=== PATIENT | female | born 1965 | race Caucasian/White ===

== ENCOUNTER 2018-02-21 11:41 | Emergency (ER) | payer MEDICARE, MEDICAID ==
[~2018-02-21] VITALS: Ht 162.6 cm; Wt 90.0 kg
[2018-02-21 11:54] VITALS: BP 143/89
[2018-02-21] MEDS ORDERED: ORPH100T2 PO (12:20)
== END 2018-02-21 12:30 | disposition home or self-care (01) ==
LOC: ER 11:41
DX: R51 Headache (principal); F07.81 Postconcussional syndrome; R20.2 Paresthesia of skin; R42 Dizziness and giddiness; Z88.0 Allergy status to penicillin; Z88.8 Allergy status to other drugs, medicaments and biological substances
CPT/HCPCS: 99283

== ENCOUNTER 2018-03-31 15:09 | Emergency (ER) | payer MEDICARE, OTHER ==
[~2018-03-31] VITALS: Ht 162.6 cm; Wt 90.0 kg
[~2018-03-31 15:09] MED LIST: ORPH100T2 PO
[2018-03-31 15:33] VITALS: BP 125/84
[2018-03-31] MEDS ORDERED: HYDR-4353 PO (17:18)
[2018-03-31] MEDS ORDERED: HYDR-4383 PO ×2 (17:24→18:06)
[2018-03-31] MEDS ORDERED: ketorolac tromethamine 15mg/ml inj. IM ONE (17:25)
== END 2018-03-31 18:07 | disposition home or self-care (01) ==
LOC: ER 15:10
DX: S16.1XXA Strain of muscle, fascia and tendon at neck level, initial encounter (principal); Z88.0 Allergy status to penicillin; Z88.8 Allergy status to other drugs, medicaments and biological substances; Z79.899 Other long term (current) drug therapy; X58.XXXA Exposure to other specified factors, initial encounter; Y93.89 Activity, other specified; Y92.89 Other specified places as the place of occurrence of the external cause; Y99.8 Other external cause status
CPT/HCPCS: 96372; 99284; J1885

== ENCOUNTER 2018-11-07 18:25 | Emergency (ER) | payer MEDICARE, MEDICAID ==
[~2018-11-07] VITALS: Ht 162.6 cm; Wt 81.0 kg
[~2018-11-07 18:25] MED LIST changes: +HYDR-4383 PO
[2018-11-07 19:02] LABS: BASOPHILS % (AUTO) 0.3 % (0-1); EOSINOPHILS # (AUTO) 0.1 X10'3 (0-0.9); HEMATOCRIT 49.1 % (35.0-45.0); HEMOGLOBIN 16.6 g/dl (12.0-16.0); LYMPHOCYTES # (AUTO) 2.1 X10'3 (1.1-4.8); LYMPHOCYTES % (AUTO) 17.3 % (21-51); MEAN CORPUSCULAR HEMOGLOBIN 29.6 PG (27.0-31.0); MEAN CORPUSCULAR HGB CONC 33.8 g/dL (33.0-36.5); MEAN CORPUSCULAR VOLUME 87.5 FL (78-98); MEAN PLATELET VOLUME 7.7 FL (7.4-10.4); MONOCYTES # (AUTO) 0.6 X10'3 (0-0.9); MONOCYTES % (AUTO) 5.3 % (2-12); NEUTROPHILS # (AUTO) 9.2 X10'3 (1.8-7.7); NEUTROPHILS % (AUTO) 76.1 % (42-75); PLATELET COUNT 467 X10'3 (140-440); RED BLOOD COUNT 5.61 X10'6 (4.20-5.60); RED CELL DISTRIBUTION WIDTH 13.8 % (11.5-14.5); WHITE BLOOD COUNT 12.2 X10'3 (4.5-11.0)
[2018-11-07 19:06] LABS: CLARITY,URINE CLEAR (Clear); COLOR,URINE YELLOW (Yellow); GLUCOSE, URINE 250 mg/dl (Neg); KETONES,URINE NEGATIVE (Neg); LEUKOCYTE ESTERASE ,URINE NEGATIVE (Neg); NITRITES, URINE NEGATIVE (Neg); OCCULT BLOOD,URINE SMALL (Neg); PROTEIN,URINE >=300 mg/dl (Neg); URINE HCG NEGATIVE (NEG); UROBILINOGEN,URINE 0.2 E.U/dL (0.2-1.0)
[2018-11-07 19:07] LABS: UA COLLECTION TYPE CLN CATCH MIDSTREAM
[2018-11-07 19:14] LABS: BACTERIA,URINE NONE SEEN /HPF (Neg); MUCUS STRANDS NONE SEEN /LPF (Neg); RBC,URINE 0-2 /HPF (0-2); SQUAMOUS EPITHELIAL CELL,UR FEW /LPF (FEW); WBC,URINE NONE SEEN /HPF (0-4)
[2018-11-07 19:25] LABS: ALANINE AMINOTRANSFERASE 56 U/L (12-78); ALBUMIN 4.4 G/DL (3.4-5.0); ALBUMIN/GLOBULIN RATIO 0.9 (1.1-1.5); ALKALINE PHOSPHATASE 126 IU/L (46-116); ANION GAP 9 (8-16); ASPARTATE AMINO TRANSFERASE 24 U/L (10-37); BILIRUBIN,TOTAL 0.5 MG/DL (0.1-1.0); BLOOD UREA NITROGEN 7 MG/DL (7-18); BUN/CREATININE RATIO 9.7 (6.6-38.0); CALCIUM 10.5 MG/DL (8.5-10.1); CHLORIDE 100 MMOL/L (99-107); CREATININE 0.72 MG/DL (0.40-0.90); GLUCOSE 202 MG/DL (70-104); POTASSIUM 4.7 MMOL/L (3.5-5.1); SODIUM 137 MMOL/L (135-145); TOTAL CARBON DIOXIDE 28.2 MMOL/L (24-32); TOTAL PROTEIN 9.3 G/DL (6.4-8.2); eGFR 84 ML/MIN
--- NOTE | 2018-11-07 19:35 | NUR ---
PT DECLINED IV START STATES SHE HAS DRANK PLENTY OF FLUIDS TODAY IS ASKING FOR NAUSEA MEDICATION TO BE GIVEN PO OR RI NOTIFIED DR PORTILLO
[2018-11-07] MEDS ORDERED: ondansetron/PF 4mg/2ml inj IV ONE (19:40)
[2018-11-07] MEDS ORDERED: normal saline 1000ML IV soln IVB ONE (19:40)
--- NOTE | 2018-11-07 19:41 | NUR ---
traffic director her to take pt to ct via wheel chair
--- NOTE | 2018-11-07 19:52 | NUR ---
PT BACK FROM CT
[2018-11-07] MEDS ORDERED: ondansetron 4mg rapidly disintigrating tab PO ONE (20:05)
[2018-11-07] MEDS ORDERED: ONDA4TAB6 PO (20:55)
--- NOTE | 2018-11-07 20:56 | NUR ---
EKG BEING DONE NOW
[2018-11-07 21:10] VITALS: BP 159/93
[2018-11-07 21:13] LABS: TROPONIN I < 0.04 NG/ML (0.0-0.05)
== END 2018-11-07 21:08 | disposition home or self-care (01) ==
LOC: ER 18:26
DX: R42 Dizziness and giddiness (principal); R11.0 Nausea; E11.9 Type 2 diabetes mellitus without complications; Z88.0 Allergy status to penicillin; Z88.8 Allergy status to other drugs, medicaments and biological substances; Z79.899 Other long term (current) drug therapy
CPT/HCPCS: 36415; 70450; 80053; 81001; 81025; 82948; 84484; 85025; 85610; 93005; 99284

== ENCOUNTER 2020-02-13 10:20 | Emergency (ER) | payer MEDICARE, MEDICAID ==
[~2020-02-13] VITALS: Ht 162.6 cm; Wt 71.8 kg
[~2020-02-13 10:20] MED LIST changes: +ONDA4TAB6 PO
[2020-02-13 10:31] VITALS: BP 131/82
[2020-02-13] MEDS ORDERED: CLIN150C8 PO (10:47)
[2020-02-13] MEDS ORDERED: HYDR-3965 PO (10:47)
== END 2020-02-13 11:09 | disposition home or self-care (01) ==
LOC: ER 10:21
DX: K02.9 Dental caries, unspecified (principal); E11.9 Type 2 diabetes mellitus without complications; Z72.89 Other problems related to lifestyle; Z88.0 Allergy status to penicillin; Z88.2 Allergy status to sulfonamides; Z79.899 Other long term (current) drug therapy
CPT/HCPCS: 99283

== ENCOUNTER 2020-02-17 19:51 | Emergency (ER) | payer MEDICARE, MEDICAID ==
[~2020-02-17] VITALS: Ht 162.6 cm; Wt 73.5 kg
[~2020-02-17 19:51] MED LIST changes: +CLIN150C8 PO; +HYDR-3965 PO
[2020-02-17 19:52] VITALS: BP 154/87
[2020-02-17] MEDS ORDERED: ondansetron 4mg rapidly disintigrating tab PO ONE (21:15)
[2020-02-17] MEDS ORDERED: HYDR-4383 PO (21:15)
[2020-02-17] MEDS ORDERED: HYDROcodone/acetaminophen 5mg/325mg tablet PO ONE (21:15)
[2020-02-17] MEDS ORDERED: ONDA4TAB6 PO (21:15)
== END 2020-02-17 21:30 | disposition home or self-care (01) ==
LOC: ER 19:51
DX: K08.89 Other specified disorders of teeth and supporting structures (principal); E11.9 Type 2 diabetes mellitus without complications; Z88.0 Allergy status to penicillin; Z88.2 Allergy status to sulfonamides; Z88.8 Allergy status to other drugs, medicaments and biological substances; Z79.899 Other long term (current) drug therapy
CPT/HCPCS: 99283

== ENCOUNTER → 2020-05-29 | Day surgery (SDC) | payer MEDICARE, MEDICAID ==
[2020-05-22 11:23] LABS: CLARITY,URINE CLEAR (Clear); COLOR,URINE YELLOW (Yellow); GLUCOSE, URINE NEGATIVE (Neg); KETONES,URINE NEGATIVE (Neg); LEUKOCYTE ESTERASE ,URINE NEGATIVE (Neg); NITRITES, URINE NEGATIVE (Neg); OCCULT BLOOD,URINE NEGATIVE (Neg); PH,URINE 5.5 (4.8-8.0); PROTEIN,URINE NEGATIVE (Neg); UROBILINOGEN,URINE 0.2 E.U/dL (0.2-1.0)
[2020-05-22 11:26] LABS: UA COLLECTION TYPE CLN CATCH MIDSTREAM
[2020-05-22 11:35] LABS: BASOPHILS # (AUTO) 0.1 X10'3 (0-0.2); BASOPHILS % (AUTO) 0.8 % (0-1); EOSINOPHILS # (AUTO) 0.3 X10'3 (0-0.9); EOSINOPHILS % (AUTO) 4.3 % (0-6); LYMPHOCYTES # (AUTO) 2.1 X10'3 (1.1-4.8); LYMPHOCYTES % (AUTO) 27.2 % (21-51); MEAN CORPUSCULAR HGB CONC 33.3 g/dL (33.0-36.5); MEAN CORPUSCULAR VOLUME 90.2 FL (78-98); MEAN PLATELET VOLUME 7.9 FL (7.4-10.4); MONOCYTES # (AUTO) 0.4 X10'3 (0-0.9); MONOCYTES % (AUTO) 5.4 % (2-12); NEUTROPHILS # (AUTO) 4.8 X10'3 (1.8-7.7); NEUTROPHILS % (AUTO) 62.3 % (42-75); PRE OP HEMATOCRIT 41.5 % (35.0-45.0); PRE OP HEMOGLOBIN 13.8 g/dL (12.0-16.0); PRE OP PLATELET COUNT 341 X10'3 (140-440); RED CELL DISTRIBUTION WIDTH 13.2 % (11.5-14.5)
[2020-05-22 11:39] LABS: PRE OP PROTIME 10.3 SECONDS (9.0-12.0)
[2020-05-22 11:40] LABS: ALBUMIN 3.7 G/DL (3.4-5.0); ALKALINE PHOSPHATASE 91 IU/L (46-116); BLOOD UREA NITROGEN 17 MG/DL (7-18); BUN/CREATININE RATIO 26.6 (6.6-38.0); CALCIUM 8.9 MG/DL (8.5-10.1); CHLORIDE 107 MMOL/L (99-107); CREATININE 0.64 MG/DL (0.40-0.90); PRE OP ALT 41 U/L (30-65); PRE OP ANION GAP 8 (8-16); PRE OP AST 33 U/L (10-37); PRE OP BILIRUB, TOTAL 0.3 MG/DL (0.0-1.0); PRE OP GLUCOSE 79 MG/DL (70-104); PRE OP POTASSIUM 4.2 MMOL/L (3.4-5.1); PRE OP SODIUM 142 MMOL/L (135-145); TOTAL PROTEIN 7.5 G/DL (6.4-8.2); eGFR > 90 ML/MIN
[~2020-05-29] VITALS: Ht 162.6 cm; Wt 74.8 kg
[~2020-05-29] MED LIST changes: +BUPR-317 PO; -CLIN150C8 PO; +DOCUMENT DATE & TIME OF BETA-BLOCKER PO ONE; +GINS250C10 PO; +GLU850T PO; -HYDR-3965 PO; -HYDR-4383 PO; +LAMO200T10 PO; -ONDA4TAB6 PO; -ORPH100T2 PO; +PER5325T PO; +PROP10TA10 PO; +cefazolin/dext.iso 2gm/100ml 100 ML IV ONE; +diazepam 5mg tablet PO ONE; +famotidine 20mg tablet PO ONE; +ringers solution, lacted 1,000 ML IV SCH
--- NOTE | 2020-05-29 12:30 | NUR ---
PT WAS FOUND TO HAVE AN OPEN WOUND ON BOTTOM OF LEFT FOOT. STATES SHE HAS BEEN USING SALICYLIC ACID FOR A PLANTAR WART. DR PADNYA WAS NOTIFIED AND CANCELLED HER SURGERY UNTIL SKIN HAS HEALED. PT DCD IN STABLE CONDITION, TAKEN TO CAR VIA .
== END | disposition home or self-care (01) ==
LOC: PAS 09:56
PROVIDERS: ATTEND Podiatrist Foot & Ankle Surgery
DX: M20.42 Other hammer toe(s) (acquired), left foot (principal); Z53.8 Procedure and treatment not carried out for other reasons; B07.0 Plantar wart; Z20.822 Contact with and (suspected) exposure to COVID-19; Z79.01 Long term (current) use of anticoagulants; Z79.899 Other long term (current) drug therapy
CPT/HCPCS: 36415; 80053; 81003; 85025; 85610; 85730; 93005; U0003; J7120

== ENCOUNTER 2020-06-26 09:01 | Day surgery (SDC) | payer MEDICARE, MEDICAID ==
[2020-06-19 15:07] LABS: BASOPHILS # (AUTO) 0.1 X10'3 (0-0.2); BASOPHILS % (AUTO) 0.8 % (0-1); EOSINOPHILS # (AUTO) 0.4 X10'3 (0-0.9); EOSINOPHILS % (AUTO) 3.7 % (0-6); LYMPHOCYTES # (AUTO) 3.1 X10'3 (1.1-4.8); LYMPHOCYTES % (AUTO) 32.6 % (21-51); MEAN CORPUSCULAR HEMOGLOBIN 30.1 PG (27.0-31.0); MEAN CORPUSCULAR HGB CONC 33.2 g/dL (33.0-36.5); MEAN CORPUSCULAR VOLUME 90.9 FL (78-98); MEAN PLATELET VOLUME 7.5 FL (7.4-10.4); MONOCYTES # (AUTO) 0.5 X10'3 (0-0.9); MONOCYTES % (AUTO) 5.8 % (2-12); NEUTROPHILS # (AUTO) 5.4 X10'3 (1.8-7.7); NEUTROPHILS % (AUTO) 57.1 % (42-75); PRE OP HEMATOCRIT 42.2 % (35.0-45.0); PRE OP PLATELET COUNT 329 X10'3 (140-440); RED BLOOD COUNT 4.65 X10'6 (4.20-5.60); RED CELL DISTRIBUTION WIDTH 13.4 % (11.5-14.5)
[2020-06-19 15:20] LABS: ALBUMIN 3.9 G/DL (3.4-5.0); ALKALINE PHOSPHATASE 100 IU/L (46-116); BLOOD UREA NITROGEN 11 MG/DL (7-18); BUN/CREATININE RATIO 15.5 (6.6-38.0); CALCIUM 9.6 MG/DL (8.5-10.1); CHLORIDE 103 MMOL/L (99-107); CREATININE 0.71 MG/DL (0.40-0.90); PRE OP ALT 42 U/L (30-65); PRE OP ANION GAP 11 (8-16); PRE OP AST 21 U/L (10-37); PRE OP BILIRUB, TOTAL 0.2 MG/DL (0.0-1.0); PRE OP GLUCOSE 92 MG/DL (70-104); PRE OP SODIUM 141 MMOL/L (135-145); TOTAL CARBON DIOXIDE 27.2 MMOL/L (24-32); eGFR 85 ML/MIN
[~2020-06-26] VITALS: Ht 162.6 cm; Wt 75.6 kg
[2020-06-26] VITALS (10 sets, daily range): BP systolic 116–144; BP diastolic 51–82
[~2020-06-26 09:01] MED LIST changes: +BUPR300T86 PO; +CLON0.1T2 PO; +MELA3TAB39 PO; +MESSAGE TO NURSING IV ONE; +NAPR-996 PO; -PER5325T PO; -cefazolin/dext.iso 2gm/100ml 100 ML IV ONE; -diazepam 5mg tablet PO ONE
[2020-06-26 11:12] LABS: CLARITY,URINE CLEAR (Clear); COLOR,URINE STRAW (Yellow); GLUCOSE, URINE NEGATIVE (Neg); KETONES,URINE NEGATIVE (Neg); LEUKOCYTE ESTERASE ,URINE NEGATIVE (Neg); NITRITES, URINE NEGATIVE (Neg); OCCULT BLOOD,URINE NEGATIVE (Neg); PROTEIN,URINE NEGATIVE (Neg); UROBILINOGEN,URINE 0.2 E.U/dL (0.2-1.0)
[2020-06-26 11:18] LABS: UA COLLECTION TYPE CLN CATCH MIDSTREAM
[2020-06-26] MEDS ORDERED: bacitracin 15gm ointment TP ONE (13:01)
[2020-06-26] MEDS ORDERED: fentaNYL/PF 50MCG/1 ML 2ML syringe ONE (13:02)
[2020-06-26] MEDS ORDERED: midazolam 1 mg/ML 2ml injection ONE ×2 (13:02→13:03)
[2020-06-26] MEDS ORDERED: CLINDAMYCIN/D5W 900mg/50ml 50 ML IV ONE (13:15)
[2020-06-26] MEDS ORDERED: sevoflurane 250ml liquid IH ONE (13:24)
[2020-06-26] MEDS ORDERED: ringers solution, lacted 1,000 ML IV SCH (14:25)
[2020-06-26] MEDS ORDERED: morphine 4 MG/ML inj SYRINge IV PRN (14:25)
[2020-06-26] MEDS ORDERED: ROPIVAcaine 0.2% (10 MG/5 ML) BOLUS INJECTION POPLITEAL PRN (14:25)
[2020-06-26] MEDS ORDERED: meperidine/PF 25mg/ml syringe IV PRN ×3 (14:25)
[2020-06-26] MEDS ORDERED: ondansetron/PF 4mg/2ml inj IV PRN (14:25)
[2020-06-26] MEDS ORDERED: proCHLORperazine 10 MG/2 ml inj IV PRN (14:25)
[2020-06-26] MEDS ORDERED: morphine 2 MG/ML inj. syringe IV PRN (14:25)
[2020-06-26] MEDS ORDERED: ROPIVAcaine 0.2%/PF PUMP/bolus 545 ML POPLITEAL SCH (14:25)
[2020-06-26] MEDS ORDERED: LIDOcaine 1%/PF 5ML 10 MG/ML VIAL ONE (14:33)
[2020-06-26] MEDS ORDERED: rocuronium 10mg/ml inj IV ONE (14:33)
[2020-06-26] MEDS ORDERED: glycopyrrolate 0.2mg/ml inj ONE (14:33)
[2020-06-26] MEDS ORDERED: propofol inj 20 ML IV ONE (14:33)
[2020-06-26] MEDS ORDERED: acetaminophen 1,000mg/100ml IV 100 ML IV ONE (14:33)
[2020-06-26] MEDS ORDERED: dexamethasone sod phosphate 4mg/ml inj. ONE (14:33)
[2020-06-26] MEDS ORDERED: ondansetron/PF 4mg/2ml inj ONE (14:33)
[2020-06-26] MEDS ORDERED: neostigmine methylsulfate 1 MG/ML 10ml vial ONE (14:33)
[2020-06-26] MEDS ORDERED: meperidine/PF 25mg/ml syringe ONE (15:26)
--- NOTE | 2020-06-26 15:45 | NUR ---
ADMITTED TO PACU FROM OR ACCOMPANIED BY ANESTHESIA. INTIAL PHYSICAL ASSESSMENT DONE AND RECORDED. REPORT RECEIVED FROM ANESTHESIA.
--- NOTE | 2020-06-26 17:00 | NUR ---
DISCHARGE CRITERIA MET, DISCHARGE INSTRUCTIONS GIVEN, DEMONSTRATES VERBAL UNDERSTANDING. DISCHARGED HOME IN GOOD CONDITION.
== END 2020-06-26 17:00 | disposition home or self-care (01) ==
LOC: PAS 09:01
PROVIDERS: ATTEND Podiatrist Foot & Ankle Surgery
DX: M77.42 Metatarsalgia, left foot (principal); M20.42 Other hammer toe(s) (acquired), left foot; M19.072 Primary osteoarthritis, left ankle and foot; E11.9 Type 2 diabetes mellitus without complications; M79.672 Pain in left foot; G89.18 Other acute postprocedural pain
CPT/HCPCS: 28112; 28113; 28285; 36415; 64450; 73620; 76000; 76937; 80053; 81003; 82948; 85025; A6223; C1713; J0131; J1100; J2175; J2250; J2405; J2704; J2710; J2795; J3010; U0003; U0005; A4215; A4618; A6449; A7000; J3490; J7120

== ENCOUNTER 2021-02-12 19:17 | Emergency (ER) | payer MEDICARE, MEDICAID ==
[~2021-02-12] VITALS: Ht 162.6 cm; Wt 81.2 kg
[~2021-02-12 19:17] MED LIST changes: -DOCUMENT DATE & TIME OF BETA-BLOCKER PO ONE; -MESSAGE TO NURSING IV ONE; -famotidine 20mg tablet PO ONE; -ringers solution, lacted 1,000 ML IV SCH
[2021-02-12 19:18] VITALS: BP 159/94
[2021-02-12] MEDS ORDERED: clindamycin 150mg capsule PO ONE (22:55)
[2021-02-12] MEDS ORDERED: CLIN-142 PO (23:05)
[2021-02-12] MEDS ORDERED: HYDR-3965 PO (23:17)
== END 2021-02-13 00:50 | disposition home or self-care (01) ==
LOC: ER 19:17
DX: K04.7 Periapical abscess without sinus (principal); K08.89 Other specified disorders of teeth and supporting structures; E11.9 Type 2 diabetes mellitus without complications; Z72.89 Other problems related to lifestyle; Z88.0 Allergy status to penicillin; Z88.2 Allergy status to sulfonamides; Z88.8 Allergy status to other drugs, medicaments and biological substances; Z79.2 Long term (current) use of antibiotics; Z79.899 Other long term (current) drug therapy
CPT/HCPCS: 99283